=== PATIENT | male | born 1945 | race Caucasian/White ===

== ENCOUNTER 2018-01-30 16:23 | Inpatient (IN) | payer MEDICARE, OTHER ==
[2018-01-30 17:08] LABS: ADD MAN DIFF? NO
[2018-01-30] MEDS: SOD CHLORIDE 0.9% 2,000 ML IV (17:21)
[2018-01-30 17:26] LABS: BASOPHILS % 0.2 % (0.0-2.0); EOSINOPHILS % 0.1 % (0.0-7.0); HEMATOCRIT 31.5 % (42.0-52.0); HEMOGLOBIN 11.2 g/dl (14.0-18.0); LYMPHOCYTES # 1.6 10^3/ul (0.8-2.9); LYMPHOCYTES % 12.5 % (15.0-51.0); MEAN CORPUSCULAR HEMOGLOBIN 30.9 pg (29.0-33.0); MEAN CORPUSCULAR HGB CONC 35.6 g/dl (32.0-37.0); MEAN CORPUSCULAR VOLUME 86.8 fl (82.0-101.0); MEAN PLATELET VOLUME 9.4 fl (7.4-10.4); MONOCYTE # 0.8 10^3/ul (0.3-0.9); MONOCYTES % 5.9 % (0.0-11.0); NEUTROPHIL # 10.3 10^3/ul (1.6-7.5); NEUTROPHILS % 80.7 % (39.0-77.0); PLATELET COUNT 268 10^3/UL (140-415); RED BLOOD COUNT 3.63 10^6/ul (4.70-6.10); RED CELL DISTRIBUTION WIDTH 13.2 % (11.5-14.5)
[2018-01-30 17:26] LABS: WHITE BLOOD COUNT 12.7 10^3/ul (4.8-10.8)
[2018-01-30 17:34] LABS: ALANINE AMINOTRANSFERASE 50 IU/L (13-69); ALBUMIN 3.3 g/dl (3.3-4.9); ALBUMIN/GLOBULIN RATIO 0.94; ALKALINE PHOSPHATASE 126 IU/L (42-121); ANION GAP 21 (8-16); ASPARTATE AMINO TRANSFERASE 41 IU/L (15-46); BILIRUBIN,INDIRECT 0.5 mg/dl (0-1.1); BILIRUBIN,TOTAL 0.5 mg/dl (0.2-1.3); BLOOD UREA NITROGEN 20 mg/dl (7-20); CALCIUM 8.6 mg/dl (8.4-10.2); CARBON DIOXIDE 27 mmol/L (21-31); CHLORIDE 91 mmol/L (97-110); CREATININE 0.73 mg/dl (0.61-1.24); POTASSIUM 4.8 mmol/L (3.5-5.1); SODIUM 134 mmol/L (135-144); TOTAL PROTEIN 6.8 g/dl (6.1-8.1)
[2018-01-30 17:37] LABS: GLUCOSE 541 mg/dl (70-220)
[2018-01-30] MEDS: INSULIN LISPRO 100 UNIT/ML VIAL SC ×2 (18:19→22:43)
[2018-01-30 18:32] LABS: ACETONE NEGATIVE (NEGATIVE)
[2018-01-30] MEDS: CEFEPIME 1GM/50 ML (PMX) 50 ML IVPB (19:08)
[2018-01-30] MEDS: VANCOMYCIN 1 GM (PMX) 250 ML IVPB (19:45)
[2018-01-30] MEDS ORDERED: ACETAMINOPHEN 325 MG TAB PO (20:00)
[2018-01-30] MEDS ORDERED: ONDANSETRON 4 MG INJ IV (20:00)
[2018-01-30] MEDS ORDERED: GLUCOSE GEL 15 GRAM TUBE PO ×2 (22:00)
[2018-01-30] MEDS ORDERED: GLUCAGON 1 MG INJ IM (22:00)
[2018-01-30] MEDS ORDERED: GLUCOSE GEL 15 GRAM TUBE BUCCAL (22:00)
[2018-01-30] MEDS ORDERED: BISACODYL (EC) 5 MG TAB PO (22:00)
[2018-01-30] MEDS ORDERED: DEXTROSE 50% 50 ML SYRINGE IV ×2 (22:00)
[2018-01-30] MEDS ORDERED: DOCUSATE SODIUM 100 MG CAP PO (22:00)
[2018-01-30] MEDS ORDERED: NACL 0.9% 3 ML SYG IV (22:00)
[2018-01-30] MEDS: SOD CHLORIDE 0.9% 500 ML IV (22:39)
[2018-01-30] MEDS: SOD CHLORIDE 0.9% 1,000 ML IV (22:40)
[2018-01-31] MEDS ORDERED: PENDING SANTYL ORDER FOR WOUND CARE XX (03:00)
[2018-01-31] MEDS: ACCU-CHEK XX (03:09)
[2018-01-31 05:18] LABS: ADD MAN DIFF? NO
[2018-01-31 05:26] LABS: WHITE BLOOD COUNT 12.6 10^3/ul (4.8-10.8)
[2018-01-31 05:26] LABS: BASOPHILS % 0.2 % (0.0-2.0); EOSINOPHILS # 0.1 10^3/ul (0.0-0.5); EOSINOPHILS % 0.4 % (0.0-7.0); HEMOGLOBIN 10.2 g/dl (14.0-18.0); LYMPHOCYTES # 0.9 10^3/ul (0.8-2.9); LYMPHOCYTES % 7.3 % (15.0-51.0); MEAN CORPUSCULAR HEMOGLOBIN 30.6 pg (29.0-33.0); MEAN CORPUSCULAR HGB CONC 35.2 g/dl (32.0-37.0); MEAN CORPUSCULAR VOLUME 87.1 fl (82.0-101.0); MEAN PLATELET VOLUME 9.1 fl (7.4-10.4); MONOCYTE # 0.8 10^3/ul (0.3-0.9); NEUTROPHIL # 10.8 10^3/ul (1.6-7.5); NEUTROPHILS % 85.8 % (39.0-77.0); PLATELET COUNT 240 10^3/UL (140-415); POSITIVE DIFF @See below; RED BLOOD COUNT 3.33 10^6/ul (4.70-6.10); RED CELL DISTRIBUTION WIDTH 13.2 % (11.5-14.5)
[2018-01-31 05:38] LABS: HEMOGLOBIN A1C 11.8 % (0-5.9)
[2018-01-31 05:46] LABS: ALANINE AMINOTRANSFERASE 48 IU/L (13-69); ALBUMIN 2.7 g/dl (3.3-4.9); ALBUMIN/GLOBULIN RATIO 0.84; ALKALINE PHOSPHATASE 110 IU/L (42-121); ANION GAP 10 (8-16); ASPARTATE AMINO TRANSFERASE 46 IU/L (15-46); BILIRUBIN,INDIRECT 0.3 mg/dl (0-1.1); BILIRUBIN,TOTAL 0.3 mg/dl (0.2-1.3); BLOOD UREA NITROGEN 13 mg/dl (7-20); CALCIUM 7.7 mg/dl (8.4-10.2); CARBON DIOXIDE 28 mmol/L (21-31); CHLORIDE 103 mmol/L (97-110); CHOLESTEROL < 50 mg/dl (100-200); CREATININE 0.58 mg/dl (0.61-1.24); GLUCOSE 150 mg/dl (70-220); HDL CHOLESTEROL 17 mg/dl (31-75); MAGNESIUM 1.4 mg/dl (1.7-2.5); POTASSIUM 3.6 mmol/L (3.5-5.1); SODIUM 137 mmol/L (135-144); TOTAL PROTEIN 5.9 g/dl (6.1-8.1); TRIGLYCERIDES 62 mg/dl (0-149)
[2018-01-31] MEDS: INSULIN ASPART [NOVOLOG] 3 ML PEN SC ×4 (07:50→21:07)
[2018-01-31] MEDS: CEFTRIAXONE 1 GM/50 ML (PMX) 50 ML IVPB (08:00)
[2018-01-31] MEDS: AZITHROMYCIN 500MG/NS (PMX) 250 ML IVPB (08:54)
[2018-01-31] MEDS: traMADol 50 MG TAB PO ×2 (08:54→19:56)
[2018-01-31] MEDS: APIXABAN 5 MG TABLET PO ×2 (08:55→20:56)
[2018-01-31] MEDS: AMLODIPINE 10 MG TAB PO (08:55)
[2018-01-31] MEDS: MAGNESIUM SULFATE 4 GM/100 ML 100 ML IVPB (13:19)
[2018-01-31] MEDS: COLLAGENASE 5 GM (UD JAR) TOP (17:55)
[2018-01-31] MEDS: ATORVASTATIN 40 MG TAB PO (20:55)
[2018-01-31] MEDS: INSULIN GLARGINE [LANTus] (100 UNITS/ML) SYG SC (22:56)
[2018-02-01] MEDS ORDERED: VANCOMYCIN IV PER PHARMACY XX
[2018-02-01] MEDS: ACCU-CHEK XX (02:00)
[2018-02-01 05:37] LABS: ADD MAN DIFF? NO
[2018-02-01 05:50] LABS: BASOPHILS % 0.3 % (0.0-2.0); EOSINOPHILS # 0.1 10^3/ul (0.0-0.5); EOSINOPHILS % 1.3 % (0.0-7.0); HEMOGLOBIN 9.7 g/dl (14.0-18.0); LYMPHOCYTES # 1.4 10^3/ul (0.8-2.9); LYMPHOCYTES % 12.5 % (15.0-51.0); MEAN CORPUSCULAR HGB CONC 34.6 g/dl (32.0-37.0); MEAN CORPUSCULAR VOLUME 86.7 fl (82.0-101.0); MEAN PLATELET VOLUME 8.9 fl (7.4-10.4); MONOCYTE # 0.7 10^3/ul (0.3-0.9); NEUTROPHIL # 8.6 10^3/ul (1.6-7.5); NEUTROPHILS % 79.4 % (39.0-77.0); PLATELET COUNT 228 10^3/UL (140-415); RED BLOOD COUNT 3.23 10^6/ul (4.70-6.10); RED CELL DISTRIBUTION WIDTH 13.1 % (11.5-14.5)
[2018-02-01 05:50] LABS: WHITE BLOOD COUNT 10.8 10^3/ul (4.8-10.8)
[2018-02-01 06:11] LABS: ANION GAP 6 (8-16); BLOOD UREA NITROGEN 13 mg/dl (7-20); CALCIUM 7.4 mg/dl (8.4-10.2); CARBON DIOXIDE 29 mmol/L (21-31); CHLORIDE 102 mmol/L (97-110); CREATININE 0.57 mg/dl (0.61-1.24); GLUCOSE 186 mg/dl (70-220); MAGNESIUM 2.2 mg/dl (1.7-2.5); PHOSPHORUS 2.9 mg/dl (2.5-4.9); POTASSIUM 3.6 mmol/L (3.5-5.1); SODIUM 133 mmol/L (135-144)
[2018-02-01] MEDS: CEFTRIAXONE 1 GM/50 ML (PMX) 50 ML IVPB (09:01)
[2018-02-01] MEDS: APIXABAN 5 MG TABLET PO ×2 (09:04→20:47)
[2018-02-01] MEDS: AMLODIPINE 10 MG TAB PO (09:05)
[2018-02-01] MEDS: INSULIN ASPART [NOVOLOG] 3 ML PEN SC ×4 (09:08→20:54)
[2018-02-01] MEDS: traMADol 50 MG TAB PO ×3 (09:11→20:48)
[2018-02-01] MEDS: ACETAMINOPHEN 325 MG TAB PO (13:05)
[2018-02-01] MEDS: VANCOMYCIN 1 GM 250 ML IVPB (13:13)
[2018-02-01] MEDS: COLLAGENASE 5 GM (UD JAR) TOP (16:44)
[2018-02-01] MEDS ORDERED: VANCOMYCIN 750 MG in SOD CHLORIDE 0.9% 150 ML IVPB (20:00)
[2018-02-01] MEDS: ATORVASTATIN 40 MG TAB PO (20:47)
[2018-02-01] MEDS: INSULIN GLARGINE [LANTus] (100 UNITS/ML) SYG SC (20:53)
[2018-02-02] MEDS: ACCU-CHEK XX (02:00)
[2018-02-02] MEDS: traMADol 50 MG TAB PO ×4 (02:36→19:42)
[2018-02-02 05:33] LABS: ADD MAN DIFF? NO
[2018-02-02 05:40] LABS: BASOPHILS % 0.3 % (0.0-2.0); EOSINOPHILS # 0.2 10^3/ul (0.0-0.5); EOSINOPHILS % 1.8 % (0.0-7.0); HEMATOCRIT 29.7 % (42.0-52.0); HEMOGLOBIN 10.5 g/dl (14.0-18.0); LYMPHOCYTES % 11.6 % (15.0-51.0); MEAN CORPUSCULAR HEMOGLOBIN 30.7 pg (29.0-33.0); MEAN CORPUSCULAR HGB CONC 35.4 g/dl (32.0-37.0); MEAN CORPUSCULAR VOLUME 86.8 fl (82.0-101.0); MEAN PLATELET VOLUME 8.7 fl (7.4-10.4); MONOCYTE # 0.6 10^3/ul (0.3-0.9); MONOCYTES % 6.3 % (0.0-11.0); NEUTROPHILS % 79.7 % (39.0-77.0); PLATELET COUNT 245 10^3/UL (140-415); RED BLOOD COUNT 3.42 10^6/ul (4.70-6.10); RED CELL DISTRIBUTION WIDTH 13.2 % (11.5-14.5)
[2018-02-02 05:40] LABS: WHITE BLOOD COUNT 8.8 10^3/ul (4.8-10.8)
[2018-02-02 06:16] LABS: ANION GAP 6 (8-16); BLOOD UREA NITROGEN 14 mg/dl (7-20); CALCIUM 7.6 mg/dl (8.4-10.2); CARBON DIOXIDE 28 mmol/L (21-31); CHLORIDE 101 mmol/L (97-110); CREATININE 0.57 mg/dl (0.61-1.24); GLUCOSE 145 mg/dl (70-220); POTASSIUM 4.3 mmol/L (3.5-5.1); SODIUM 131 mmol/L (135-144)
[2018-02-02] MEDS: INSULIN ASPART [NOVOLOG] 3 ML PEN SC ×4 (07:50→21:20)
[2018-02-02] MEDS: CEFTRIAXONE 1 GM/50 ML (PMX) 50 ML IVPB (08:32)
[2018-02-02] MEDS: APIXABAN 5 MG TABLET PO ×2 (08:33→21:14)
[2018-02-02] MEDS: AMLODIPINE 10 MG TAB PO (08:34)
[2018-02-02] MEDS: COLLAGENASE 5 GM (UD JAR) TOP (08:34)
[2018-02-02] MEDS: VANCOMYCIN 750 MG in SOD CHLORIDE 0.9% 150 ML IVPB (12:25)
[2018-02-02] MEDS: ATORVASTATIN 40 MG TAB PO (21:14)
[2018-02-02] MEDS: INSULIN GLARGINE [LANTus] (100 UNITS/ML) SYG SC (21:19)
[2018-02-03] MEDS: ACCU-CHEK XX (02:00)
[2018-02-03] MEDS: traMADol 50 MG TAB PO ×4 (02:00→23:47)
[2018-02-03] MEDS: INSULIN ASPART [NOVOLOG] 3 ML PEN SC ×4 (07:50→21:00)
[2018-02-03] MEDS: CEFTRIAXONE 1 GM/50 ML (PMX) 50 ML IVPB (08:11)
[2018-02-03] MEDS: APIXABAN 5 MG TABLET PO ×2 (08:14→21:10)
[2018-02-03] MEDS: AMLODIPINE 10 MG TAB PO (08:14)
[2018-02-03] MEDS: COLLAGENASE 5 GM (UD JAR) TOP (12:12)
[2018-02-03] MEDS: VANCOMYCIN 750 MG in SOD CHLORIDE 0.9% 150 ML IVPB (13:12)
[2018-02-03] MEDS: ATORVASTATIN 40 MG TAB PO (21:09)
[2018-02-03] MEDS: INSULIN GLARGINE [LANTus] (100 UNITS/ML) SYG SC (21:17)
[2018-02-04] MEDS: ACCU-CHEK XX (02:00)
[2018-02-04 05:28] LABS: ADD MAN DIFF? NO
[2018-02-04 05:32] LABS: WHITE BLOOD COUNT 9.9 10^3/ul (4.8-10.8)
[2018-02-04 05:32] LABS: BASOPHILS % 0.3 % (0.0-2.0); EOSINOPHILS # 0.1 10^3/ul (0.0-0.5); EOSINOPHILS % 1.4 % (0.0-7.0); HEMOGLOBIN 10.7 g/dl (14.0-18.0); LYMPHOCYTES # 1.8 10^3/ul (0.8-2.9); LYMPHOCYTES % 17.9 % (15.0-51.0); MEAN CORPUSCULAR HEMOGLOBIN 30.7 pg (29.0-33.0); MEAN CORPUSCULAR HGB CONC 35.7 g/dl (32.0-37.0); MEAN CORPUSCULAR VOLUME 86.2 fl (82.0-101.0); MEAN PLATELET VOLUME 8.5 fl (7.4-10.4); MONOCYTE # 0.8 10^3/ul (0.3-0.9); MONOCYTES % 7.6 % (0.0-11.0); NEUTROPHIL # 7.1 10^3/ul (1.6-7.5); NEUTROPHILS % 72.3 % (39.0-77.0); PLATELET COUNT 263 10^3/UL (140-415); RED BLOOD COUNT 3.48 10^6/ul (4.70-6.10)
[2018-02-04 06:07] LABS: ANION GAP 9 (8-16); BLOOD UREA NITROGEN 8 mg/dl (7-20); CALCIUM 7.9 mg/dl (8.4-10.2); CARBON DIOXIDE 27 mmol/L (21-31); CHLORIDE 102 mmol/L (97-110); CREATININE 0.52 mg/dl (0.61-1.24); GLUCOSE 69 mg/dl (70-220); MAGNESIUM 1.7 mg/dl (1.7-2.5); POTASSIUM 3.8 mmol/L (3.5-5.1); SODIUM 134 mmol/L (135-144)
[2018-02-04] MEDS: INSULIN ASPART [NOVOLOG] 3 ML PEN SC ×4 (07:50→21:00)
[2018-02-04] MEDS: APIXABAN 5 MG TABLET PO ×2 (08:57→20:15)
[2018-02-04] MEDS: traMADol 50 MG TAB PO ×3 (08:57→20:15)
[2018-02-04] MEDS: AMLODIPINE 10 MG TAB PO (08:57)
[2018-02-04] MEDS: CEFTRIAXONE 1 GM/50 ML (PMX) 50 ML IVPB (08:58)
[2018-02-04] MEDS: COLLAGENASE 5 GM (UD JAR) TOP (08:58)
[2018-02-04 13:32] LABS: VANCOMYCIN,TROUGH 6.9 ug/ml (10.0-20.0)
[2018-02-04] MEDS: VANCOMYCIN 750 MG in SOD CHLORIDE 0.9% 150 ML IVPB (13:40)
[2018-02-04] MEDS ORDERED: ENOXAPARIN 30 MG/0.3 ML SYG SC (16:30)
[2018-02-04] MEDS: FAMOTIDINE 20 MG TAB PO (17:46)
[2018-02-04] MEDS: ATORVASTATIN 40 MG TAB PO (20:15)
[2018-02-04] MEDS: L ACIDOPHIL/B LACTIS/B LONGUM CAPSULE PO (20:15)
[2018-02-04] MEDS: INSULIN GLARGINE [LANTus] (100 UNITS/ML) SYG SC (21:19)
[2018-02-04] MEDS: VANCOMYCIN 500MG/NS (PMX) 100 ML IVPB (23:09)
[2018-02-05] MEDS: ACCU-CHEK XX (01:24)
[2018-02-05] MEDS: traMADol 50 MG TAB PO ×3 (01:35→18:27)
[2018-02-05 05:16] LABS: ADD MAN DIFF? NO
[2018-02-05 05:21] LABS: WHITE BLOOD COUNT 8.6 10^3/ul (4.8-10.8)
[2018-02-05 05:21] LABS: BASOPHILS % 0.2 % (0.0-2.0); EOSINOPHILS # 0.1 10^3/ul (0.0-0.5); EOSINOPHILS % 1.5 % (0.0-7.0); HEMATOCRIT 28.7 % (42.0-52.0); HEMOGLOBIN 10.1 g/dl (14.0-18.0); LYMPHOCYTES # 1.2 10^3/ul (0.8-2.9); LYMPHOCYTES % 14.3 % (15.0-51.0); MEAN CORPUSCULAR HEMOGLOBIN 29.8 pg (29.0-33.0); MEAN CORPUSCULAR HGB CONC 35.2 g/dl (32.0-37.0); MEAN CORPUSCULAR VOLUME 84.7 fl (82.0-101.0); MEAN PLATELET VOLUME 8.5 fl (7.4-10.4); MONOCYTE # 0.6 10^3/ul (0.3-0.9); MONOCYTES % 7.3 % (0.0-11.0); NEUTROPHIL # 6.5 10^3/ul (1.6-7.5); NEUTROPHILS % 76.4 % (39.0-77.0); PLATELET COUNT 251 10^3/UL (140-415); RED BLOOD COUNT 3.39 10^6/ul (4.70-6.10); RED CELL DISTRIBUTION WIDTH 13.3 % (11.5-14.5)
[2018-02-05 05:43] LABS: ALANINE AMINOTRANSFERASE 70 IU/L (13-69); ALBUMIN 2.6 g/dl (3.3-4.9); ALBUMIN/GLOBULIN RATIO 0.83; ALKALINE PHOSPHATASE 217 IU/L (42-121); ANION GAP 7 (8-16); ASPARTATE AMINO TRANSFERASE 82 IU/L (15-46); BILIRUBIN,INDIRECT 0.4 mg/dl (0-1.1); BILIRUBIN,TOTAL 0.4 mg/dl (0.2-1.3); BLOOD UREA NITROGEN 6 mg/dl (7-20); CALCIUM 7.8 mg/dl (8.4-10.2); CARBON DIOXIDE 29 mmol/L (21-31); CHLORIDE 102 mmol/L (97-110); CREATININE 0.53 mg/dl (0.61-1.24); GLUCOSE 99 mg/dl (70-220); MAGNESIUM 1.7 mg/dl (1.7-2.5); PHOSPHORUS 3.5 mg/dl (2.5-4.9); POTASSIUM 4.1 mmol/L (3.5-5.1); SODIUM 134 mmol/L (135-144); TOTAL PROTEIN 5.7 g/dl (6.1-8.1)
[2018-02-05] MEDS: INSULIN ASPART [NOVOLOG] 3 ML PEN SC ×4 (08:30→20:36)
[2018-02-05] MEDS: FAMOTIDINE 20 MG TAB PO (09:07)
[2018-02-05] MEDS: FISH OIL 1,000 MG CAP PO (09:07)
[2018-02-05] MEDS: COLLAGENASE 5 GM (UD JAR) TOP (09:07)
[2018-02-05] MEDS: L ACIDOPHIL/B LACTIS/B LONGUM CAPSULE PO ×2 (09:07→20:34)
[2018-02-05] MEDS: APIXABAN 5 MG TABLET PO ×2 (09:07→20:35)
[2018-02-05] MEDS: CEFTRIAXONE 1 GM/50 ML (PMX) 50 ML IVPB (09:08)
[2018-02-05] MEDS: AMLODIPINE 10 MG TAB PO (09:08)
[2018-02-05] MEDS: VANCOMYCIN 500MG/NS (PMX) 100 ML IVPB (12:36)
[2018-02-05] MEDS: ATORVASTATIN 40 MG TAB PO (20:34)
[2018-02-05] MEDS: INSULIN GLARGINE [LANTus] (100 UNITS/ML) SYG SC (20:37)
[2018-02-06] MEDS: VANCOMYCIN 500MG/NS (PMX) 100 ML IVPB ×2 (00:07→12:30)
[2018-02-06] MEDS: traMADol 50 MG TAB PO ×3 (00:08→12:41)
[2018-02-06] MEDS: ACCU-CHEK XX (01:40)
[2018-02-06 05:41] LABS: ADD MAN DIFF? NO
[2018-02-06 05:43] LABS: WHITE BLOOD COUNT 7.8 10^3/ul (4.8-10.8)
[2018-02-06 05:43] LABS: BASOPHILS % 0.4 % (0.0-2.0); EOSINOPHILS # 0.2 10^3/ul (0.0-0.5); EOSINOPHILS % 2.1 % (0.0-7.0); HEMATOCRIT 31.2 % (42.0-52.0); HEMOGLOBIN 10.8 g/dl (14.0-18.0); LYMPHOCYTES # 1.5 10^3/ul (0.8-2.9); LYMPHOCYTES % 18.9 % (15.0-51.0); MEAN CORPUSCULAR HEMOGLOBIN 30.2 pg (29.0-33.0); MEAN CORPUSCULAR HGB CONC 34.6 g/dl (32.0-37.0); MEAN CORPUSCULAR VOLUME 87.2 fl (82.0-101.0); MEAN PLATELET VOLUME 8.4 fl (7.4-10.4); MONOCYTE # 0.6 10^3/ul (0.3-0.9); MONOCYTES % 8.1 % (0.0-11.0); NEUTROPHIL # 5.4 10^3/ul (1.6-7.5); NEUTROPHILS % 70.1 % (39.0-77.0); PLATELET COUNT 290 10^3/UL (140-415); RED BLOOD COUNT 3.58 10^6/ul (4.70-6.10); RED CELL DISTRIBUTION WIDTH 13.5 % (11.5-14.5)
[2018-02-06 06:06] LABS: ALANINE AMINOTRANSFERASE 76 IU/L (13-69); ALBUMIN 2.6 g/dl (3.3-4.9); ALBUMIN/GLOBULIN RATIO 0.76; ALKALINE PHOSPHATASE 216 IU/L (42-121); ANION GAP 9 (8-16); ASPARTATE AMINO TRANSFERASE 88 IU/L (15-46); BILIRUBIN,INDIRECT 0.3 mg/dl (0-1.1); BILIRUBIN,TOTAL 0.3 mg/dl (0.2-1.3); BLOOD UREA NITROGEN 7 mg/dl (7-20); CALCIUM 7.9 mg/dl (8.4-10.2); CARBON DIOXIDE 26 mmol/L (21-31); CHLORIDE 101 mmol/L (97-110); CREATININE 0.53 mg/dl (0.61-1.24); GLUCOSE 127 mg/dl (70-220); POTASSIUM 4.2 mmol/L (3.5-5.1); SODIUM 132 mmol/L (135-144)
[2018-02-06] MEDS: INSULIN ASPART [NOVOLOG] 3 ML PEN SC ×3 (07:50→18:00)
[2018-02-06] MEDS: FISH OIL 1,000 MG CAP PO (08:40)
[2018-02-06] MEDS: APIXABAN 5 MG TABLET PO (09:41)
[2018-02-06] MEDS: CEFTRIAXONE 1 GM/50 ML (PMX) 50 ML IVPB (09:41)
[2018-02-06] MEDS: L ACIDOPHIL/B LACTIS/B LONGUM CAPSULE PO (09:42)
[2018-02-06] MEDS: COLLAGENASE 5 GM (UD JAR) TOP (09:42)
[2018-02-06] MEDS: FAMOTIDINE 20 MG TAB PO (09:42)
[2018-02-06] MEDS: AMLODIPINE 10 MG TAB PO (09:42)
[2018-02-06 11:59] LABS: VANCOMYCIN,TROUGH 15.3 ug/ml (10.0-20.0)
[2018-02-06] MEDS: LINAGLIPTIN 5 MG TABLET PO (12:30)
[2018-02-06] MEDS ORDERED: IBUPROFEN 800 MG TAB PO (13:30)
[2018-02-06] MEDS: CIPROFLOXACIN 500 MG TAB PO ×2 (15:01→18:01)
[2018-02-06] MEDS ORDERED: INSULIN GLARGINE [LANTus] (100 UNITS/ML) SYG SC (20:00)
== END 2018-02-06 18:30 | disposition home health service (06) | DRG 871 ==
LOC: MS1 19:55 → E/R 16:23 → MS1 02-04 10:40
PROVIDERS: Family Medicine
DX: A41.9 Sepsis, unspecified organism (principal); J69.0 Pneumonitis due to inhalation of food and vomit; L89.153 Pressure ulcer of sacral region, stage 3; J18.9 Pneumonia, unspecified organism; L89.159 Pressure ulcer of sacral region, unspecified stage; Z86.73 Personal history of transient ischemic attack (TIA), and cerebral infarction without residual deficits; R13.10 Dysphagia, unspecified; E11.65 Type 2 diabetes mellitus with hyperglycemia; I25.10 Atherosclerotic heart disease of native coronary artery without angina pectoris; Z89.512 Acquired absence of left leg below knee; Z79.02 Long term (current) use of antithrombotics/antiplatelets; Z79.4 Long term (current) use of insulin; B95.61 Methicillin susceptible Staphylococcus aureus infection as the cause of diseases classified elsewhere
CPT/HCPCS: 36415; 71045; 80048; 80053; 80061; 80202; 82010; 82962; 83036; 83735; 84100; 84443; 85025; 87040; 92526; 92610; 93005; 93306; 96361; 96365; 96372; 96375; 99285-25

== ENCOUNTER 2018-02-23 10:13 | Inpatient (IN) | payer MEDICARE, OTHER ==
[2018-02-23 11:19] LABS: ADD MAN DIFF? NO
[2018-02-23 11:21] LABS: BASOPHILS % 0.2 % (0.0-2.0); EOSINOPHILS % 0.2 % (0.0-7.0); HEMATOCRIT 27.4 % (42.0-52.0); HEMOGLOBIN 9.8 g/dl (14.0-18.0); IMMATURE GRANS #M 0.07 10^3/ul; IMMATURE GRANS % (M) 0.4 %; LYMPHOCYTES # 1.3 10^3/ul (0.8-2.9); LYMPHOCYTES % 7.1 % (15.0-51.0); MEAN CORPUSCULAR HEMOGLOBIN 30.8 pg (29.0-33.0); MEAN CORPUSCULAR HGB CONC 35.8 g/dl (32.0-37.0); MEAN CORPUSCULAR VOLUME 86.2 fl (82.0-101.0); MEAN PLATELET VOLUME 8.9 fl (7.4-10.4); MONOCYTE # 1.1 10^3/ul (0.3-0.9); MONOCYTES % 5.7 % (0.0-11.0); NEUTROPHIL # 16.2 10^3/ul (1.6-7.5); NEUTROPHILS % 86.4 % (39.0-77.0); PLATELET COUNT 353 10^3/UL (140-415); RED BLOOD COUNT 3.18 10^6/ul (4.70-6.10); RED CELL DISTRIBUTION WIDTH 14.1 % (11.5-14.5)
[2018-02-23 11:21] LABS: WHITE BLOOD COUNT 18.7 10^3/ul (4.8-10.8)
[2018-02-23] MEDS: SOD CHLORIDE 0.9% 1,000 ML IV ×2 (11:24→15:34)
[2018-02-23] MEDS: CEFEPIME 1GM/50 ML (PMX) 50 ML IVPB (11:25)
[2018-02-23 11:28] LABS: ALANINE AMINOTRANSFERASE 30 IU/L (13-69); ALBUMIN 2.8 g/dl (3.3-4.9); ALBUMIN/GLOBULIN RATIO 0.82; ALKALINE PHOSPHATASE 163 IU/L (42-121); ANION GAP 14 (8-16); ASPARTATE AMINO TRANSFERASE 33 IU/L (15-46); BILIRUBIN,INDIRECT 0.1 mg/dl (0-1.1); BILIRUBIN,TOTAL 0.1 mg/dl (0.2-1.3); BLOOD UREA NITROGEN 15 mg/dl (7-20); CALCIUM 8.3 mg/dl (8.4-10.2); CARBON DIOXIDE 25 mmol/L (21-31); CHLORIDE 101 mmol/L (97-110); CREATININE 0.58 mg/dl (0.61-1.24); GLUCOSE 213 mg/dl (70-220); LIPASE 13 U/L (23-300); SODIUM 136 mmol/L (135-144); TOTAL PROTEIN 6.2 g/dl (6.1-8.1)
[2018-02-23 11:39] LABS: TROPONIN-I < 0.010 ng/ml (0.000-0.120)
[2018-02-23 11:44] LABS: ADD UMIC YES; UR ASCORBIC ACID NEGATIVE (NEGATIVE); UR BILIRUBIN (Dip) NEGATIVE (NEGATIVE); UR BLOOD (Dip) NEGATIVE (NEGATIVE); UR CLARITY CLEAR (CLEAR); UR COLOR YELLOW (YELLOW); UR GLUCOSE (Dip) 2+ mg/dL (NEGATIVE); UR KETONES (Dip) NEGATIVE (NEGATIVE); UR LEUKOCYTE ESTERASE (Dip) TRACE Leu/ul (NEGATIVE); UR NITRITE (Dip) NEGATIVE (NEGATIVE); UR RBC 3 /HPF (0-5); UR SPECIFIC GRAVITY (Dip) 1.016 (1.003-1.030); UR SQUAMOUS EPITHELIAL CELL FEW /HPF (FEW); UR TOTAL PROTEIN (Dip) 2+ mg/dl (NEGATIVE); UR UROBILINOGEN (Dip) 1+ mg/dL (NEGATIVE); UR WBC 8 /HPF (0-5)
[2018-02-23] MEDS: VANCOMYCIN 1 GM (PMX) 250 ML IVPB (11:56)
[2018-02-23] MEDS: SOD CHLORIDE 0.9% 100 ML (11:58)
[2018-02-23] MEDS: IOHEXOL 300MG/ML 150 ML BTL (11:58)
[2018-02-23] MEDS ORDERED: ACETAMINOPHEN 325 MG TAB PO (14:30)
[2018-02-23] MEDS ORDERED: ONDANSETRON 4 MG INJ IV ×2 (14:30→15:00)
[2018-02-23] MEDS ORDERED: ALBUTEROL 0.083% (NEB) 2.5 MG/3 ML AMP HHN (15:00)
[2018-02-23] MEDS ORDERED: NACL 0.9% 3 ML SYG IV (15:00)
[2018-02-23] MEDS ORDERED: VANCOMYCIN IV PER PHARMACY XX (15:30)
[2018-02-23] MEDS: LEVOFLOXACIN 750MG/D5W (PMX) 150 ML IVPB (15:34)
[2018-02-23 15:42] LABS: HEMOGLOBIN A1C 10.4 % (0-5.9)
[2018-02-23] MEDS ORDERED: GLUCOSE GEL 15 GRAM TUBE BUCCAL (16:00)
[2018-02-23] MEDS ORDERED: GLUCOSE GEL 15 GRAM TUBE PO (16:00)
[2018-02-23] MEDS ORDERED: GLUCAGON 1 MG INJ IM (16:00)
[2018-02-23] MEDS ORDERED: DEXTROSE 50% 50 ML SYRINGE IV (16:00)
[2018-02-23 16:20] LABS: IRON 23 ug/dl (35-150)
[2018-02-23 16:30] LABS: % IRON SATURATION 8 % SAT (22-52); TOTAL IRON BINDING CAPACITY 281 ug/dl (241-421)
[2018-02-23] MEDS: SENNA/DOCUSATE NA (8.6MG/50MG) TAB PO ×2 (17:55→21:09)
[2018-02-23] MEDS: BISACODYL (EC) 5 MG TAB PO (17:56)
[2018-02-23] MEDS: POLYETHYLENE GLYCOL 17 GM PACKET PO (17:56)
[2018-02-23] MEDS: INSULIN ASPART [NOVOLOG] 3 ML PEN SC ×2 (18:28→21:12)
[2018-02-23] MEDS ORDERED: PENDING SANTYL ORDER FOR WOUND CARE XX (19:30)
[2018-02-23] MEDS ORDERED: DOCUSATE SODIUM 100 MG CAP PO (21:00)
[2018-02-23] MEDS: ATORVASTATIN 40 MG TAB PO (21:09)
[2018-02-23] MEDS: APIXABAN 5 MG TABLET PO (21:09)
[2018-02-23] MEDS: ACETAMINOPHEN 325 MG TAB PO (22:47)
[2018-02-23] MEDS: VANCOMYCIN 500MG/NS (PMX) 100 ML IVPB (22:47)
[2018-02-24] MEDS: ACETAMINOPHEN 325 MG TAB PO (05:10)
[2018-02-24] MEDS: PANTOPRAZOLE 40 MG INJ IV (05:10)
[2018-02-24 06:26] LABS: ADD MAN DIFF? NO
[2018-02-24 06:37] LABS: WHITE BLOOD COUNT 17.5 10^3/ul (4.8-10.8)
[2018-02-24 06:37] LABS: BASOPHILS % 0.2 % (0.0-2.0); EOSINOPHILS % 0.1 % (0.0-7.0); HEMATOCRIT 25.1 % (42.0-52.0); HEMOGLOBIN 8.8 g/dl (14.0-18.0); IMMATURE GRANS #M 0.09 10^3/ul; IMMATURE GRANS % (M) 0.5 %; LYMPHOCYTES # 1.4 10^3/ul (0.8-2.9); LYMPHOCYTES % 7.9 % (15.0-51.0); MEAN CORPUSCULAR HEMOGLOBIN 30.2 pg (29.0-33.0); MEAN CORPUSCULAR HGB CONC 35.1 g/dl (32.0-37.0); MEAN CORPUSCULAR VOLUME 86.3 fl (82.0-101.0); MEAN PLATELET VOLUME 8.6 fl (7.4-10.4); MONOCYTES % 5.4 % (0.0-11.0); NEUTROPHIL # 15.1 10^3/ul (1.6-7.5); NEUTROPHILS % 85.9 % (39.0-77.0); PLATELET COUNT 310 10^3/UL (140-415); RED BLOOD COUNT 2.91 10^6/ul (4.70-6.10)
[2018-02-24 06:55] LABS: ANION GAP 11 (8-16); BLOOD UREA NITROGEN 12 mg/dl (7-20); CALCIUM 7.6 mg/dl (8.4-10.2); CARBON DIOXIDE 23 mmol/L (21-31); CHLORIDE 102 mmol/L (97-110); CREATININE 0.48 mg/dl (0.61-1.24); GLUCOSE 226 mg/dl (70-220); MAGNESIUM 1.3 mg/dl (1.7-2.5); PHOSPHORUS 2.9 mg/dl (2.5-4.9); POTASSIUM 3.4 mmol/L (3.5-5.1); SODIUM 133 mmol/L (135-144)
[2018-02-24] MEDS: APIXABAN 5 MG TABLET PO ×2 (08:20→21:36)
[2018-02-24] MEDS: POLYETHYLENE GLYCOL 17 GM PACKET PO (08:21)
[2018-02-24] MEDS: AMLODIPINE 10 MG TAB PO (08:21)
[2018-02-24] MEDS ORDERED: INSULIN DETEMIR [LEVEMIR] (100 UNITS/ML) SYG SC (09:00)
[2018-02-24] MEDS ORDERED: CEFTRIAXONE 1 GM/50 ML (PMX) 50 ML IVPB (09:00)
[2018-02-24] MEDS: INSULIN ASPART [NOVOLOG] 3 ML PEN SC ×4 (09:12→21:00)
[2018-02-24] MEDS: SENNA/DOCUSATE NA (8.6MG/50MG) TAB PO ×2 (10:16→21:37)
[2018-02-24] MEDS: MAGNESIUM OXIDE 400 MG TAB PO (10:16)
[2018-02-24] MEDS: POTASSIUM CHLORIDE (SR) 20 MEQ TAB PO (10:17)
[2018-02-24] MEDS: INSULIN GLARGINE [LANTus] (100 UNITS/ML) SYG SC (10:19)
[2018-02-24] MEDS: VANCOMYCIN 500MG/NS (PMX) 100 ML IVPB ×2 (11:55→23:36)
[2018-02-24] MEDS: FISH OIL 1,000 MG CAP PO (12:25)
[2018-02-24] MEDS: LEVOFLOXACIN 750MG/D5W (PMX) 150 ML IVPB (16:12)
[2018-02-24] MEDS ORDERED: LIDOCAINE 2% (SDV) 5 ML INJ (18:16)
[2018-02-24] MEDS ORDERED: PROPOFOL 20 ML (18:16)
[2018-02-24] MEDS ORDERED: MEPERIDINE 25 MG INJ IV (19:00)
[2018-02-24] MEDS ORDERED: OXYCODONE/ACETAMINOPHEN (5/325) TAB PO (19:00)
[2018-02-24] MEDS ORDERED: FENTAnyl 50 MCG/ML VIAL IV (19:00)
[2018-02-24] MEDS ORDERED: MIDAZOLAM 1 MG/ML 2 ML INJ IV (19:00)
[2018-02-24] MEDS ORDERED: DIPHENHYDRAMINE 50 MG INJ IV (19:00)
[2018-02-24] MEDS ORDERED: ONDANSETRON 4 MG INJ IV (19:00)
[2018-02-24] MEDS ORDERED: EPHEDrine SULFATE 50 MG/5 ML SYG IV (19:00)
[2018-02-24] MEDS ORDERED: hydrALAzine 20 MG INJ IV (19:00)
[2018-02-24] MEDS ORDERED: METOCLOPRAMIDE 10 MG INJ IV (19:00)
[2018-02-24] MEDS: FENTAnyl 50 MCG/ML VIAL IV ×2 (19:18→19:55)
[2018-02-24] MEDS: LABETALOL HCL 20MG INJ IV (20:34)
[2018-02-24] MEDS: 1/2 NS + KCL 20 MEQ 1,000 ML IV (21:36)
[2018-02-24] MEDS: ATORVASTATIN 40 MG TAB PO (21:36)
[2018-02-24] MEDS: OXYCODONE/ACETAMINOPHEN (5/325) TAB PO (21:44)
[2018-02-24 23:08] LABS: VANCOMYCIN,TROUGH 8.8 ug/ml (10.0-20.0)
[2018-02-25] MEDS: traMADol 50 MG TAB PO ×4 (02:28→23:52)
[2018-02-25] MEDS: 1/2 NS + KCL 20 MEQ 1,000 ML IV ×2 (05:20→13:11)
[2018-02-25] MEDS: PANTOPRAZOLE 40 MG INJ IV (06:03)
[2018-02-25 06:13] LABS: ADD MAN DIFF? NO
[2018-02-25 06:20] LABS: ABNORMAL IP MESSAGE 1; BASOPHIL # 0.1 10^3/ul (0.0-0.1); BASOPHILS % 0.2 % (0.0-2.0); HEMATOCRIT 27.4 % (42.0-52.0); HEMOGLOBIN 9.3 g/dl (14.0-18.0); IMMATURE GRANS #M 0.15 10^3/ul; IMMATURE GRANS % (M) 0.6 %; LYMPHOCYTES # 1.4 10^3/ul (0.8-2.9); LYMPHOCYTES % 5.8 % (15.0-51.0); MEAN CORPUSCULAR HEMOGLOBIN 29.6 pg (29.0-33.0); MEAN CORPUSCULAR HGB CONC 33.9 g/dl (32.0-37.0); MEAN CORPUSCULAR VOLUME 87.3 fl (82.0-101.0); MEAN PLATELET VOLUME 8.9 fl (7.4-10.4); MONOCYTES % 4.3 % (0.0-11.0); NEUTROPHIL # 21.1 10^3/ul (1.6-7.5); NEUTROPHILS % 89.1 % (39.0-77.0); PLATELET COUNT 313 10^3/UL (140-415); POSITIVE DIFF @See below; RED BLOOD COUNT 3.14 10^6/ul (4.70-6.10); RED CELL DISTRIBUTION WIDTH 14.4 % (11.5-14.5)
[2018-02-25 06:20] LABS: WHITE BLOOD COUNT 23.7 10^3/ul (4.8-10.8)
[2018-02-25 06:49] LABS: ALBUMIN 2.5 g/dl (3.3-4.9); ANION GAP 10 (8-16); BLOOD UREA NITROGEN 11 mg/dl (7-20); CALCIUM 7.9 mg/dl (8.4-10.2); CARBON DIOXIDE 25 mmol/L (21-31); CHLORIDE 103 mmol/L (97-110); CREATININE 0.55 mg/dl (0.61-1.24); GLUCOSE 167 mg/dl (70-220); MAGNESIUM 1.4 mg/dl (1.7-2.5); PHOSPHORUS 2.6 mg/dl (2.5-4.9); POTASSIUM 4.2 mmol/L (3.5-5.1); SODIUM 134 mmol/L (135-144)
[2018-02-25] MEDS: SENNA/DOCUSATE NA (8.6MG/50MG) TAB PO ×2 (08:23→20:41)
[2018-02-25] MEDS: APIXABAN 5 MG TABLET PO ×2 (08:23→20:41)
[2018-02-25] MEDS: FISH OIL 1,000 MG CAP PO (08:23)
[2018-02-25] MEDS: POLYETHYLENE GLYCOL 17 GM PACKET PO (08:24)
[2018-02-25] MEDS: AMLODIPINE 10 MG TAB PO (08:24)
[2018-02-25] MEDS: INSULIN ASPART [NOVOLOG] 3 ML PEN SC ×4 (09:32→20:46)
[2018-02-25] MEDS: INSULIN GLARGINE [LANTus] (100 UNITS/ML) SYG SC (09:32)
[2018-02-25] MEDS: VANCOMYCIN 750 MG in SOD CHLORIDE 0.9% 150 ML IVPB (13:11)
[2018-02-25] MEDS: HYDROCODONE/APAP (5/325) TAB PO (13:24)
[2018-02-25] MEDS: DOCUSATE SODIUM 100 MG CAP PO ×2 (13:28→20:41)
[2018-02-25] MEDS: MAGNESIUM OXIDE 400 MG TAB PO (14:20)
[2018-02-25] MEDS: PIPER-TAZO 3.375 GM IV (PMX) 100 ML IVPB ×2 (17:31→23:53)
[2018-02-25] MEDS: ATORVASTATIN 40 MG TAB PO (20:41)
[2018-02-25] MEDS: ACETAMINOPHEN 1000MG/100ML IV 100 ML IVPB (20:41)
[2018-02-26] MEDS: VANCOMYCIN 750 MG in SOD CHLORIDE 0.9% 150 ML IVPB ×2 (00:53→12:06)
[2018-02-26] MEDS: PANTOPRAZOLE 40 MG INJ IV (05:32)
[2018-02-26] MEDS: ACETAMINOPHEN 1000MG/100ML IV 100 ML IVPB ×2 (05:32→23:25)
[2018-02-26] MEDS: PIPER-TAZO 3.375 GM IV (PMX) 100 ML IVPB (05:55)
[2018-02-26 06:08] LABS: ADD MAN DIFF? NO
[2018-02-26 06:11] LABS: WHITE BLOOD COUNT 22.3 10^3/ul (4.8-10.8)
[2018-02-26 06:12] LABS: BASOPHILS % 0.2 % (0.0-2.0); EOSINOPHILS # 0.1 10^3/ul (0.0-0.5); EOSINOPHILS % 0.3 % (0.0-7.0); HEMATOCRIT 26.9 % (42.0-52.0); HEMOGLOBIN 9.3 g/dl (14.0-18.0); IMMATURE GRANS #M 0.15 10^3/ul; IMMATURE GRANS % (M) 0.7 %; LYMPHOCYTES # 1.9 10^3/ul (0.8-2.9); LYMPHOCYTES % 8.3 % (15.0-51.0); MEAN CORPUSCULAR HEMOGLOBIN 29.6 pg (29.0-33.0); MEAN CORPUSCULAR HGB CONC 34.6 g/dl (32.0-37.0); MEAN CORPUSCULAR VOLUME 85.7 fl (82.0-101.0); MEAN PLATELET VOLUME 8.6 fl (7.4-10.4); MONOCYTE # 1.3 10^3/ul (0.3-0.9); MONOCYTES % 5.9 % (0.0-11.0); NEUTROPHIL # 18.9 10^3/ul (1.6-7.5); NEUTROPHILS % 84.6 % (39.0-77.0); PLATELET COUNT 305 10^3/UL (140-415); RED BLOOD COUNT 3.14 10^6/ul (4.70-6.10); RED CELL DISTRIBUTION WIDTH 14.1 % (11.5-14.5)
[2018-02-26 06:49] LABS: ALBUMIN 2.4 g/dl (3.3-4.9); ANION GAP 12 (8-16); BLOOD UREA NITROGEN 9 mg/dl (7-20); CALCIUM 7.6 mg/dl (8.4-10.2); CARBON DIOXIDE 25 mmol/L (21-31); CHLORIDE 99 mmol/L (97-110); CREATININE 0.54 mg/dl (0.61-1.24); GLUCOSE 115 mg/dl (70-220); MAGNESIUM 1.3 mg/dl (1.7-2.5); PHOSPHORUS 2.5 mg/dl (2.5-4.9); POTASSIUM 3.9 mmol/L (3.5-5.1); SODIUM 132 mmol/L (135-144)
[2018-02-26] MEDS: INSULIN ASPART [NOVOLOG] 3 ML PEN SC ×4 (07:59→20:39)
[2018-02-26] MEDS: 1/2 NS + KCL 20 MEQ 1,000 ML IV ×2 (08:00→14:48)
[2018-02-26] MEDS: SODIUM HYPOCHLORITE (1/40) 1 APPLIC BTL IRR (08:00)
[2018-02-26] MEDS: FISH OIL 1,000 MG CAP PO (08:11)
[2018-02-26] MEDS: APIXABAN 5 MG TABLET PO ×2 (08:11→20:38)
[2018-02-26] MEDS: DOCUSATE SODIUM 100 MG CAP PO ×2 (08:11→20:38)
[2018-02-26] MEDS: AMLODIPINE 10 MG TAB PO (08:12)
[2018-02-26] MEDS: POLYETHYLENE GLYCOL 17 GM PACKET PO (08:12)
[2018-02-26] MEDS: INSULIN GLARGINE [LANTus] (100 UNITS/ML) SYG SC (08:15)
[2018-02-26] MEDS: SENNA/DOCUSATE NA (8.6MG/50MG) TAB PO ×2 (08:18→20:39)
[2018-02-26] MEDS: ERTAPENEM SODIUM 1 GM in SOD CHLORIDE 0.9% 100 ML IVPB (14:01)
[2018-02-26] MEDS: MAGNESIUM SULFATE 2 GM/50 ML 50 ML IVPB (14:46)
[2018-02-26] MEDS: FLUCONAZOLE 200 MG TAB PO (15:16)
[2018-02-26] MEDS: ATORVASTATIN 40 MG TAB PO (20:38)
[2018-02-26] MEDS: traMADol 50 MG TAB PO (20:39)
[2018-02-26 23:59] LABS: VANCOMYCIN,TROUGH 10.8 ug/ml (10.0-20.0)
[2018-02-27] MEDS: VANCOMYCIN 750 MG in SOD CHLORIDE 0.9% 150 ML IVPB (00:19)
[2018-02-27] MEDS ORDERED: HYDROCODONE/APAP (5/325) TAB PO ×2 (00:30)
[2018-02-27] MEDS: morphine 2 MG INJ IV (00:42)
[2018-02-27] MEDS: PANTOPRAZOLE 40 MG INJ IV (05:45)
[2018-02-27] MEDS: INSULIN ASPART [NOVOLOG] 3 ML PEN SC ×4 (08:00→20:21)
[2018-02-27] MEDS: POLYETHYLENE GLYCOL 17 GM PACKET PO (08:14)
[2018-02-27] MEDS: AMLODIPINE 10 MG TAB PO (08:15)
[2018-02-27] MEDS: FISH OIL 1,000 MG CAP PO (08:15)
[2018-02-27] MEDS: FLUCONAZOLE 200 MG TAB PO (08:15)
[2018-02-27] MEDS: DOCUSATE SODIUM 100 MG CAP PO ×2 (08:15→20:16)
[2018-02-27] MEDS: APIXABAN 5 MG TABLET PO ×2 (08:15→20:16)
[2018-02-27] MEDS: SODIUM HYPOCHLORITE (1/40) 1 APPLIC BTL IRR (08:16)
[2018-02-27] MEDS: INSULIN GLARGINE [LANTus] (100 UNITS/ML) SYG SC (08:22)
[2018-02-27] MEDS: SENNA/DOCUSATE NA (8.6MG/50MG) TAB PO ×2 (08:23→20:16)
[2018-02-27 09:14] LABS: ADD MAN DIFF? NO
[2018-02-27 09:16] LABS: WHITE BLOOD COUNT 23.9 10^3/ul (4.8-10.8)
[2018-02-27 09:16] LABS: ABNORMAL IP MESSAGE 1; BASOPHIL # 0.1 10^3/ul (0.0-0.1); BASOPHILS % 0.2 % (0.0-2.0); EOSINOPHILS % 0.1 % (0.0-7.0); HEMOGLOBIN 10.3 g/dl (14.0-18.0); LYMPHOCYTES # 1.6 10^3/ul (0.8-2.9); LYMPHOCYTES % 6.9 % (15.0-51.0); MEAN CORPUSCULAR HEMOGLOBIN 30.7 pg (29.0-33.0); MEAN CORPUSCULAR HGB CONC 35.5 g/dl (32.0-37.0); MEAN CORPUSCULAR VOLUME 86.3 fl (82.0-101.0); MEAN PLATELET VOLUME 8.6 fl (7.4-10.4); MONOCYTE # 1.2 10^3/ul (0.3-0.9); NEUTROPHIL # 20.8 10^3/ul (1.6-7.5); PLATELET COUNT 335 10^3/UL (140-415); POSITIVE DIFF @See below; RED BLOOD COUNT 3.36 10^6/ul (4.70-6.10)
[2018-02-27 10:00] LABS: ALBUMIN 2.5 g/dl (3.3-4.9); ANION GAP 12 (8-16); BLOOD UREA NITROGEN 7 mg/dl (7-20); CALCIUM 7.7 mg/dl (8.4-10.2); CARBON DIOXIDE 27 mmol/L (21-31); CHLORIDE 96 mmol/L (97-110); CREATININE 0.49 mg/dl (0.61-1.24); GLUCOSE 103 mg/dl (70-220); MAGNESIUM 1.8 mg/dl (1.7-2.5); POTASSIUM 4.1 mmol/L (3.5-5.1); SODIUM 131 mmol/L (135-144)
[2018-02-27] MEDS: 1/2 NS + KCL 20 MEQ 1,000 ML IV ×2 (10:15→23:26)
[2018-02-27] MEDS: VANCOMYCIN 1 GM 250 ML IVPB ×2 (10:25→23:25)
[2018-02-27] MEDS: ERTAPENEM SODIUM 1 GM in SOD CHLORIDE 0.9% 100 ML IVPB (14:07)
[2018-02-27] MEDS: HYDROCODONE/APAP (5/325) TAB PO (18:54)
[2018-02-27] MEDS: ATORVASTATIN 40 MG TAB PO (20:16)
[2018-02-27] MEDS: traMADol 50 MG TAB PO ×2 (20:16→21:20)
[2018-02-28] MEDS: HYDROCODONE/APAP (5/325) TAB PO ×3 (01:34→22:47)
[2018-02-28 05:51] LABS: ADD MAN DIFF? NO
[2018-02-28 05:56] LABS: WHITE BLOOD COUNT 23.6 10^3/ul (4.8-10.8)
[2018-02-28 05:56] LABS: BASOPHILS % 0.1 % (0.0-2.0); EOSINOPHILS # 0.1 10^3/ul (0.0-0.5); EOSINOPHILS % 0.2 % (0.0-7.0); HEMATOCRIT 26.4 % (42.0-52.0); HEMOGLOBIN 9.2 g/dl (14.0-18.0); LYMPHOCYTES # 2.1 10^3/ul (0.8-2.9); LYMPHOCYTES % 8.9 % (15.0-51.0); MEAN CORPUSCULAR HGB CONC 34.8 g/dl (32.0-37.0); MEAN PLATELET VOLUME 8.6 fl (7.4-10.4); MONOCYTE # 1.3 10^3/ul (0.3-0.9); MONOCYTES % 5.5 % (0.0-11.0); NEUTROPHIL # 19.9 10^3/ul (1.6-7.5); NEUTROPHILS % 84.4 % (39.0-77.0); PLATELET COUNT 324 10^3/UL (140-415); RED BLOOD COUNT 3.07 10^6/ul (4.70-6.10); RED CELL DISTRIBUTION WIDTH 13.9 % (11.5-14.5)
[2018-02-28] MEDS: PANTOPRAZOLE (EC) 40 MG TAB PO (06:01)
[2018-02-28] MEDS: traMADol 50 MG TAB PO (06:02)
[2018-02-28 06:39] LABS: ANION GAP 10 (8-16); BLOOD UREA NITROGEN 10 mg/dl (7-20); CALCIUM 7.6 mg/dl (8.4-10.2); CARBON DIOXIDE 26 mmol/L (21-31); CHLORIDE 97 mmol/L (97-110); CREATININE 0.51 mg/dl (0.61-1.24); GLUCOSE 111 mg/dl (70-220); MAGNESIUM 1.6 mg/dl (1.7-2.5); POTASSIUM 4.2 mmol/L (3.5-5.1); SODIUM 129 mmol/L (135-144)
[2018-02-28] MEDS: DOCUSATE SODIUM 100 MG CAP PO ×2 (08:46→20:45)
[2018-02-28] MEDS: SENNA/DOCUSATE NA (8.6MG/50MG) TAB PO ×2 (08:46→20:45)
[2018-02-28] MEDS: APIXABAN 5 MG TABLET PO ×2 (08:46→20:45)
[2018-02-28] MEDS: POLYETHYLENE GLYCOL 17 GM PACKET PO (08:46)
[2018-02-28] MEDS: SODIUM HYPOCHLORITE (1/40) 1 APPLIC BTL IRR (08:46)
[2018-02-28] MEDS: FISH OIL 1,000 MG CAP PO (08:46)
[2018-02-28] MEDS: AMLODIPINE 10 MG TAB PO (08:47)
[2018-02-28] MEDS: INSULIN GLARGINE [LANTus] (100 UNITS/ML) SYG SC (08:52)
[2018-02-28] MEDS: INSULIN ASPART [NOVOLOG] 3 ML PEN SC ×4 (08:52→20:45)
[2018-02-28] MEDS: VANCOMYCIN 1 GM 250 ML IVPB ×2 (10:13→23:55)
[2018-02-28] MEDS: FLUCONAZOLE 200 MG TAB PO (10:13)
[2018-02-28] MEDS: 1/2 NS + KCL 20 MEQ 1,000 ML IV (13:20)
[2018-02-28] MEDS: ERTAPENEM SODIUM 1 GM in SOD CHLORIDE 0.9% 100 ML IVPB (13:50)
[2018-02-28] MEDS: ATORVASTATIN 40 MG TAB PO (20:45)
[2018-02-28 23:11] LABS: VANCOMYCIN,TROUGH 16.8 ug/ml (10.0-20.0)
[2018-03-01] MEDS: 1/2 NS + KCL 20 MEQ 1,000 ML IV ×2 (02:40→10:55)
[2018-03-01] MEDS: HYDROCODONE/APAP (5/325) TAB PO ×2 (06:26→15:40)
[2018-03-01] MEDS: PANTOPRAZOLE (EC) 40 MG TAB PO (06:26)
[2018-03-01] MEDS: traMADol 50 MG TAB PO (07:31)
[2018-03-01 08:27] LABS: ADD MAN DIFF? NO
[2018-03-01 08:38] LABS: WHITE BLOOD COUNT 22.5 10^3/ul (4.8-10.8)
[2018-03-01 08:38] LABS: BASOPHILS % 0.1 % (0.0-2.0); EOSINOPHILS # 0.1 10^3/ul (0.0-0.5); EOSINOPHILS % 0.4 % (0.0-7.0); HEMOGLOBIN 8.8 g/dl (14.0-18.0); LYMPHOCYTES # 1.8 10^3/ul (0.8-2.9); LYMPHOCYTES % 8.2 % (15.0-51.0); MEAN CORPUSCULAR HGB CONC 35.2 g/dl (32.0-37.0); MEAN CORPUSCULAR VOLUME 85.3 fl (82.0-101.0); MEAN PLATELET VOLUME 8.7 fl (7.4-10.4); MONOCYTE # 1.1 10^3/ul (0.3-0.9); NEUTROPHIL # 19.3 10^3/ul (1.6-7.5); NEUTROPHILS % 85.7 % (39.0-77.0); PLATELET COUNT 276 10^3/UL (140-415); RED BLOOD COUNT 2.93 10^6/ul (4.70-6.10); RED CELL DISTRIBUTION WIDTH 13.8 % (11.5-14.5)
[2018-03-01] MEDS: SODIUM HYPOCHLORITE (1/40) 1 APPLIC BTL IRR (08:52)
[2018-03-01] MEDS: INSULIN ASPART [NOVOLOG] 3 ML PEN SC ×4 (09:03→21:23)
[2018-03-01] MEDS: INSULIN GLARGINE [LANTus] (100 UNITS/ML) SYG SC (09:03)
[2018-03-01] MEDS: FISH OIL 1,000 MG CAP PO (09:04)
[2018-03-01] MEDS: SENNA/DOCUSATE NA (8.6MG/50MG) TAB PO ×2 (09:04→21:20)
[2018-03-01] MEDS: AMLODIPINE 10 MG TAB PO (09:04)
[2018-03-01] MEDS: DOCUSATE SODIUM 100 MG CAP PO ×2 (09:04→21:20)
[2018-03-01] MEDS: APIXABAN 5 MG TABLET PO ×2 (09:04→21:20)
[2018-03-01] MEDS: POLYETHYLENE GLYCOL 17 GM PACKET PO (09:04)
[2018-03-01] MEDS: FLUCONAZOLE 200 MG TAB PO (09:04)
[2018-03-01 09:05] LABS: ANION GAP 12 (8-16); BLOOD UREA NITROGEN 8 mg/dl (7-20); CALCIUM 7.6 mg/dl (8.4-10.2); CARBON DIOXIDE 24 mmol/L (21-31); CHLORIDE 97 mmol/L (97-110); GLUCOSE 111 mg/dl (70-220); MAGNESIUM 1.4 mg/dl (1.7-2.5); PHOSPHORUS 3.5 mg/dl (2.5-4.9); POTASSIUM 4.3 mmol/L (3.5-5.1); SODIUM 129 mmol/L (135-144)
[2018-03-01 11:27] LABS: PROCALCITONIN 0.12 ng/mL (<0.10)
[2018-03-01] MEDS: VANCOMYCIN 750 MG in SOD CHLORIDE 0.9% 150 ML IVPB (13:01)
[2018-03-01] MEDS: ERTAPENEM SODIUM 1 GM in SOD CHLORIDE 0.9% 100 ML IVPB (15:40)
[2018-03-01] MEDS: MAGNESIUM SULFATE 2 GM/50 ML 50 ML IVPB (16:37)
[2018-03-01] MEDS: ATORVASTATIN 40 MG TAB PO (21:20)
[2018-03-02] MEDS: VANCOMYCIN 750 MG in SOD CHLORIDE 0.9% 150 ML IVPB ×2 (00:29→13:56)
[2018-03-02] MEDS: HYDROCODONE/APAP (5/325) TAB PO (01:41)
[2018-03-02] MEDS: PANTOPRAZOLE (EC) 40 MG TAB PO (06:41)
[2018-03-02 07:05] LABS: ADD MAN DIFF? NO
[2018-03-02 07:10] LABS: BASOPHILS % 0.2 % (0.0-2.0); EOSINOPHILS # 0.1 10^3/ul (0.0-0.5); EOSINOPHILS % 0.7 % (0.0-7.0); HEMATOCRIT 26.6 % (42.0-52.0); HEMOGLOBIN 9.2 g/dl (14.0-18.0); LYMPHOCYTES # 2.1 10^3/ul (0.8-2.9); LYMPHOCYTES % 10.7 % (15.0-51.0); MEAN CORPUSCULAR HEMOGLOBIN 29.2 pg (29.0-33.0); MEAN CORPUSCULAR HGB CONC 34.6 g/dl (32.0-37.0); MEAN CORPUSCULAR VOLUME 84.4 fl (82.0-101.0); MEAN PLATELET VOLUME 8.4 fl (7.4-10.4); MONOCYTES % 5.3 % (0.0-11.0); NEUTROPHIL # 15.9 10^3/ul (1.6-7.5); NEUTROPHILS % 82.4 % (39.0-77.0); PLATELET COUNT 301 10^3/UL (140-415); RED BLOOD COUNT 3.15 10^6/ul (4.70-6.10)
[2018-03-02 07:10] LABS: WHITE BLOOD COUNT 19.3 10^3/ul (4.8-10.8)
[2018-03-02 07:37] LABS: ANION GAP 12 (8-16); BLOOD UREA NITROGEN 11 mg/dl (7-20); CALCIUM 7.6 mg/dl (8.4-10.2); CARBON DIOXIDE 25 mmol/L (21-31); CHLORIDE 98 mmol/L (97-110); CREATININE 0.53 mg/dl (0.61-1.24); GLUCOSE 195 mg/dl (70-220); MAGNESIUM 1.9 mg/dl (1.7-2.5); PHOSPHORUS 3.4 mg/dl (2.5-4.9); POTASSIUM 4.4 mmol/L (3.5-5.1); SODIUM 131 mmol/L (135-144)
[2018-03-02] MEDS: INSULIN ASPART [NOVOLOG] 3 ML PEN SC ×6 (08:49→20:47)
[2018-03-02] MEDS: INSULIN GLARGINE [LANTus] (100 UNITS/ML) SYG SC (08:49)
[2018-03-02] MEDS: FLUCONAZOLE 200 MG TAB PO (08:50)
[2018-03-02] MEDS: DOCUSATE SODIUM 100 MG CAP PO ×2 (08:50→20:47)
[2018-03-02] MEDS: FISH OIL 1,000 MG CAP PO (08:50)
[2018-03-02] MEDS: AMLODIPINE 10 MG TAB PO (08:50)
[2018-03-02] MEDS: APIXABAN 5 MG TABLET PO ×2 (08:50→20:47)
[2018-03-02] MEDS: POLYETHYLENE GLYCOL 17 GM PACKET PO (08:51)
[2018-03-02] MEDS: SENNA/DOCUSATE NA (8.6MG/50MG) TAB PO ×2 (08:51→20:47)
[2018-03-02] MEDS: SODIUM HYPOCHLORITE (1/40) 1 APPLIC BTL IRR (12:58)
[2018-03-02] MEDS: ERTAPENEM SODIUM 1 GM in SOD CHLORIDE 0.9% 100 ML IVPB (13:22)
[2018-03-02] MEDS: traMADol 50 MG TAB PO (14:21)
[2018-03-02] MEDS: ATORVASTATIN 40 MG TAB PO (20:47)
[2018-03-03] MEDS: VANCOMYCIN 750 MG in SOD CHLORIDE 0.9% 150 ML IVPB ×2 (00:02→12:53)
[2018-03-03] MEDS: HYDROCODONE/APAP (5/325) TAB PO (00:02)
[2018-03-03] MEDS: traMADol 50 MG TAB PO ×2 (05:53→17:41)
[2018-03-03] MEDS: PANTOPRAZOLE (EC) 40 MG TAB PO (05:53)
[2018-03-03] MEDS: INSULIN ASPART [NOVOLOG] 3 ML PEN SC ×7 (08:45→21:00)
[2018-03-03] MEDS: INSULIN GLARGINE [LANTus] (100 UNITS/ML) SYG SC (08:45)
[2018-03-03] MEDS: DOCUSATE SODIUM 100 MG CAP PO ×2 (08:54→21:31)
[2018-03-03] MEDS: POLYETHYLENE GLYCOL 17 GM PACKET PO (08:54)
[2018-03-03] MEDS: FISH OIL 1,000 MG CAP PO (08:54)
[2018-03-03] MEDS: SODIUM HYPOCHLORITE (1/40) 1 APPLIC BTL IRR (08:54)
[2018-03-03] MEDS: SENNA/DOCUSATE NA (8.6MG/50MG) TAB PO ×2 (08:54→21:31)
[2018-03-03] MEDS: FLUCONAZOLE 200 MG TAB PO (08:54)
[2018-03-03] MEDS: AMLODIPINE 10 MG TAB PO (08:54)
[2018-03-03] MEDS: APIXABAN 5 MG TABLET PO ×2 (08:54→21:31)
[2018-03-03 12:00] LABS: VANCOMYCIN,TROUGH 16.3 ug/ml (10.0-20.0)
[2018-03-03] MEDS: ERTAPENEM SODIUM 1 GM in SOD CHLORIDE 0.9% 100 ML IVPB (17:41)
[2018-03-03] MEDS: ATORVASTATIN 40 MG TAB PO (21:31)
[2018-03-03] MEDS: GLUCOSE GEL 15 GRAM TUBE PO (21:37)
[2018-03-03] MEDS: DEXTROSE 50% 50 ML SYRINGE IV (21:54)
[2018-03-03] MEDS: VANCOMYCIN 500MG/NS (PMX) 100 ML IVPB (23:46)
[2018-03-04] MEDS: PANTOPRAZOLE (EC) 40 MG TAB PO (06:39)
[2018-03-04] MEDS: INSULIN ASPART [NOVOLOG] 3 ML PEN SC ×7 (08:13→22:39)
[2018-03-04] MEDS: SODIUM HYPOCHLORITE (1/40) 1 APPLIC BTL IRR (09:00)
[2018-03-04] MEDS: POLYETHYLENE GLYCOL 17 GM PACKET PO (09:00)
[2018-03-04] MEDS: DOCUSATE SODIUM 100 MG CAP PO ×2 (09:00→22:37)
[2018-03-04] MEDS: SENNA/DOCUSATE NA (8.6MG/50MG) TAB PO ×2 (09:00→22:37)
[2018-03-04] MEDS: AMLODIPINE 10 MG TAB PO (09:56)
[2018-03-04] MEDS: FLUCONAZOLE 200 MG TAB PO (09:56)
[2018-03-04] MEDS: APIXABAN 5 MG TABLET PO ×2 (09:56→22:37)
[2018-03-04] MEDS: FISH OIL 1,000 MG CAP PO (09:56)
[2018-03-04] MEDS: INSULIN GLARGINE [LANTus] (100 UNITS/ML) SYG SC (09:58)
[2018-03-04] MEDS: traMADol 50 MG TAB PO (10:58)
[2018-03-04] MEDS: VANCOMYCIN 500MG/NS (PMX) 100 ML IVPB (11:06)
[2018-03-04] MEDS: MEROPENEM 500MG/50 ML (PMX) 50 ML IVPB ×2 (13:09→21:00)
[2018-03-04] MEDS: ATORVASTATIN 40 MG TAB PO (22:37)
[2018-03-05] MEDS: VANCOMYCIN 500MG/NS (PMX) 100 ML IVPB ×3 (00:10→23:31)
[2018-03-05] MEDS: MEROPENEM 500MG/50 ML (PMX) 50 ML IVPB ×3 (02:09→20:05)
[2018-03-05] MEDS: PANTOPRAZOLE (EC) 40 MG TAB PO (06:12)
[2018-03-05] MEDS: INSULIN ASPART [NOVOLOG] 3 ML PEN SC ×7 (08:40→20:05)
[2018-03-05] MEDS: INSULIN GLARGINE [LANTus] (100 UNITS/ML) SYG SC (08:41)
[2018-03-05] MEDS: SODIUM HYPOCHLORITE (1/40) 1 APPLIC BTL IRR (08:42)
[2018-03-05] MEDS: APIXABAN 5 MG TABLET PO ×2 (08:42→20:05)
[2018-03-05] MEDS: FISH OIL 1,000 MG CAP PO (08:42)
[2018-03-05] MEDS: POLYETHYLENE GLYCOL 17 GM PACKET PO (08:42)
[2018-03-05] MEDS: SENNA/DOCUSATE NA (8.6MG/50MG) TAB PO ×2 (08:42→20:05)
[2018-03-05] MEDS: AMLODIPINE 10 MG TAB PO (08:43)
[2018-03-05] MEDS: DOCUSATE SODIUM 100 MG CAP PO ×2 (09:00→20:05)
[2018-03-05] MEDS: ERTAPENEM SODIUM 1 GM in SOD CHLORIDE 0.9% 100 ML IVPB (09:37)
[2018-03-05] MEDS: ATORVASTATIN 40 MG TAB PO (20:05)
[2018-03-06] MEDS: traMADol 50 MG TAB PO (02:08)
[2018-03-06] MEDS: PANTOPRAZOLE (EC) 40 MG TAB PO (05:35)
[2018-03-06] MEDS: POLYETHYLENE GLYCOL 17 GM PACKET PO (08:36)
[2018-03-06] MEDS: DOCUSATE SODIUM 100 MG CAP PO ×2 (08:36→20:11)
[2018-03-06] MEDS: FISH OIL 1,000 MG CAP PO (08:36)
[2018-03-06] MEDS: APIXABAN 5 MG TABLET PO ×2 (08:37→20:11)
[2018-03-06] MEDS: SENNA/DOCUSATE NA (8.6MG/50MG) TAB PO ×2 (08:37→20:11)
[2018-03-06] MEDS: AMLODIPINE 10 MG TAB PO (08:37)
[2018-03-06] MEDS: INSULIN ASPART [NOVOLOG] 3 ML PEN SC ×7 (08:39→20:12)
[2018-03-06] MEDS: INSULIN GLARGINE [LANTus] (100 UNITS/ML) SYG SC (08:54)
[2018-03-06] MEDS: SODIUM HYPOCHLORITE (1/40) 1 APPLIC BTL IRR (08:55)
[2018-03-06] MEDS: MEROPENEM 500MG/50 ML (PMX) 50 ML IVPB ×2 (10:49→20:11)
[2018-03-06] MEDS: VANCOMYCIN 500MG/NS (PMX) 100 ML IVPB ×2 (12:38→23:54)
[2018-03-06 14:17] LABS: PROCALCITONIN 0.24 ng/mL (<0.10)
[2018-03-06] MEDS: FLUCONAZOLE 100 MG TAB PO (18:25)
[2018-03-06] MEDS: ATORVASTATIN 40 MG TAB PO (20:11)
[2018-03-07 02:32] LABS: TROPONIN-I < 0.010 ng/ml (0.000-0.120)
[2018-03-07] MEDS: PANTOPRAZOLE (EC) 40 MG TAB PO (05:57)
[2018-03-07 07:19] LABS: CHOLESTEROL 54 mg/dl (100-200)
[2018-03-07 07:19] LABS: CHOL/HDL RATIO 3.3 RATIO; HDL CHOLESTEROL 16 mg/dl (31-75); LDL CHOLESTEROL,CALCULATED 26 mg/dl; TRIGLYCERIDES 60 mg/dl (0-149)
[2018-03-07 07:30] LABS: TROPONIN-I 0.012 ng/ml (0.000-0.120)
[2018-03-07] MEDS: INSULIN ASPART [NOVOLOG] 3 ML PEN SC ×4 (08:00→13:11)
[2018-03-07] MEDS: INSULIN GLARGINE [LANTus] (100 UNITS/ML) SYG SC (08:40)
[2018-03-07] MEDS: SENNA/DOCUSATE NA (8.6MG/50MG) TAB PO (09:00)
[2018-03-07] MEDS: DOCUSATE SODIUM 100 MG CAP PO (09:00)
[2018-03-07] MEDS: POLYETHYLENE GLYCOL 17 GM PACKET PO (09:10)
[2018-03-07] MEDS: FISH OIL 1,000 MG CAP PO (09:10)
[2018-03-07] MEDS: FLUCONAZOLE 100 MG TAB PO (09:10)
[2018-03-07] MEDS: APIXABAN 5 MG TABLET PO (09:10)
[2018-03-07] MEDS: AMLODIPINE 10 MG TAB PO (09:10)
[2018-03-07] MEDS: SODIUM HYPOCHLORITE (1/40) 1 APPLIC BTL IRR (09:19)
[2018-03-07] MEDS: MEROPENEM 500MG/50 ML (PMX) 50 ML IVPB (10:48)
[2018-03-07 11:51] LABS: CREATININE 0.53 mg/dl (0.61-1.24)
[2018-03-07 11:51] LABS: BLOOD UREA NITROGEN 14 mg/dl (7-20)
[2018-03-07 11:52] LABS: VANCOMYCIN,TROUGH 8.1 ug/ml (10.0-20.0)
[2018-03-07] MEDS: VANCOMYCIN 500MG/NS (PMX) 100 ML IVPB (12:00)
[2018-03-07 12:38] LABS: TROPONIN-I < 0.012 ng/ml (0.000-0.120)
== END 2018-03-07 14:00 | disposition hospice, home (50) | DRG 853 ==
LOC: E/R 10:13 → 2NE 14:31
PROC: 0JBQ0ZZ Excision of Right Foot Subcutaneous Tissue and Fascia, Open Approach (ICD-10-PCS; principal; 2018-02-24 18:00)
PROC: 0JBN0ZZ Excision of Right Lower Leg Subcutaneous Tissue and Fascia, Open Approach (ICD-10-PCS; 2018-02-24 18:00)
DX: A41.9 Sepsis, unspecified organism (principal); A48.0 Gas gangrene; N39.0 Urinary tract infection, site not specified; E11.52 Type 2 diabetes mellitus with diabetic peripheral angiopathy with gangrene; L03.115 Cellulitis of right lower limb; I70.261 Atherosclerosis of native arteries of extremities with gangrene, right leg; L97.219 Non-pressure chronic ulcer of right calf with unspecified severity; Z66 Do not resuscitate; Z89.421 Acquired absence of other right toe(s); Z89.512 Acquired absence of left leg below knee; K59.00 Constipation, unspecified; D63.8 Anemia in other chronic diseases classified elsewhere; R10.84 Generalized abdominal pain; R07.9 Chest pain, unspecified; B96.20 Unspecified Escherichia coli [E. coli] as the cause of diseases classified elsewhere; B96.5 Pseudomonas (aeruginosa) (mallei) (pseudomallei) as the cause of diseases classified elsewhere; Z79.02 Long term (current) use of antithrombotics/antiplatelets; L89.151 Pressure ulcer of sacral region, stage 1
CPT/HCPCS: 36415; 71045; 73550; 73590; 73630; 74177; 80048; 80053; 80061; 80069; 80202; 81001; 82565; 82962; 83036; 83540; 83690; 83735; 84100; 84145; 84484; 84520; 85025; 86850; 86900; 86901; 86920; 87040; 87070; 87075; 87086; 87102; 88304; 93005; 93306; 93926; 96365; 96366; 96368; 97110; 97161; 97166; 97530; 97535; 99285-25